=== PATIENT | female | born 1965 | race Caucasian/White ===

== ENCOUNTER 2023-04-28 07:31 | Day surgery (SDC) | payer BC ==
[~2023-04-28 07:31] MED LIST: Bupivacaine 0.5% 30 ML SDV ONE
[2023-04-28] MEDS ORDERED: Propofol 200 MG/20 ML SDV ONE ×3 (07:34→10:14)
[2023-04-28] MEDS ORDERED: fentaNYL 100 MCG/2 ML SDV ONE (07:34)
[2023-04-28] MEDS ORDERED: Midazolam 1 MG/ML 2 ML SDV ONE ×2 (07:34→09:35)
[2023-04-28 07:57] LABS: BASOPHILS ABSOLUTE AUTO 0.04 K/uL (0.00-0.10); BASOPHILS PERCENT AUTO 0.9 % (0.1-1.3); EOSINOPHILS ABSOLUTE AUTO 0.08 K/uL (0.00-0.40); EOSINOPHILS PERCENT AUTO 1.9 % (0.0-5.4); HEMATOCRIT 35.5 % (34.3-46.0); HEMOGLOBIN 12.4 g/dL (11.2-15.5); LYMPHOCYTES ABSOLUTE AUTO 1.65 K/uL (0.8-3.3); LYMPHOCYTES PERCENT AUTO 39.1 % (11.4-47.7); MEAN CORPUSCULAR HEMOGLOBIN 31.8 pg (31.6-35.5); MEAN CORPUSCULAR HGB CONC 34.9 g/dL (31.6-35.5); MONOCYTES ABSOLUTE AUTO 0.27 K/uL (0.20-0.90); MONOCYTES PERCENT AUTO 6.4 % (3.3-12.6); NEUTROPHILS ABSOLUTE AUTO 2.18 K/uL (1.0-7.6); NEUTROPHILS PERCENT AUTO 51.7 % (40.0-78.1); PLATELET COUNT,PLT 287 K/uL (130-375); WHITE BLOOD CELL COUNT,WBC 4.2 K/uL (3.2-11.0)
[2023-04-28] MEDS ORDERED: Lactated Ringers 1,000 ML IV SCH (08:00)
[2023-04-28] MEDS ORDERED: Nozin Nasal Sanitizer NASBOTH ONE (08:00)
[2023-04-28 08:18] LABS: A/G RATIO 0.9 (1.2-2.2); ALANINE AMINOTRANSFERASE,ALT 24 U/L (12-78); ALBUMIN 3.9 g/dL (3.4-5.0); ALKALINE PHOSPHATASE 62 U/L (46-116); ANION GAP 9.5 mmol/L (5.0-14.0); ASPARTATE AMNIOTRANSFERASE,AST 25 U/L (15-37); BILIRUBIN TOTAL 1.2 mg/dL (0.2-1.0); BLOOD UREA NITROGEN,BUN 14 mg/dL (7-18); CALCIUM 8.8 mg/dL (8.5-10.1); CARBON DIOXIDE,CO2 29 mmol/L (21-32); CHLORIDE,CL 103 mmol/L (100-108); CREATININE 0.7 mg/dL (0.6-1.0); ESTIMATED GFR 100 mL/min (>60); GLUCOSE RANDOM 95 mg/dL (74-106); POTASSIUM,K 3.7 mmol/L (3.6-5.2); PROTEIN TOTAL,TP 8.3 g/dL (6.4-8.2); SODIUM,NA 141 mmol/L (140-148)
[2023-04-28] MEDS ORDERED: ceFAZolin 2 GM in Premix Bag 1 BAG IV ONE (09:00)
[2023-04-28] MEDS ORDERED: Docusate Sodium 100 MG Cap PO PRN (09:16)
[2023-04-28] MEDS ORDERED: Ondansetron 4 MG/2 ML SDV IVPUSH PRN (09:16)
[2023-04-28] MEDS ORDERED: Morphine 2 MG/ML SYRINGE IVPUSH PRN (09:16)
[2023-04-28] MEDS ORDERED: oxyCODONE 5 MG Tab PO PRN ×2 (09:21→09:23)
[2023-04-28] MEDS ORDERED: Lactated Ringers 1,000 ML ONE (09:59)
[2023-04-28] MEDS: Sodium Chloride 0.9% 1,000 ML IV SCH ×2 (11:54→20:10)
[2023-04-28] MEDS: Ketorolac 30 MG/ML SDV IVPUSH PRN ×2 (13:04→23:38)
[2023-04-28] MEDS: Acetaminophen 325 MG Tab PO SCH ×2 (13:08→19:21)
[2023-04-28] MEDS: ceFAZolin 1 GM in Premix Bag 1 BAG IV SCH (17:10)
[2023-04-28] MEDS: Aspirin 325 MG Tab.EC PO SCH (20:07)
[2023-04-28] MEDS: Nozin Nasal Sanitizer NASBOTH SCH (20:07)
[2023-04-29] MEDS: ceFAZolin 1 GM in Premix Bag 1 BAG IV SCH ×2 (01:53→09:48)
[2023-04-29] MEDS: Acetaminophen 325 MG Tab PO SCH ×2 (01:59→07:26)
[2023-04-29] MEDS: Sodium Chloride 0.9% 1,000 ML IV SCH (04:49)
[2023-04-29] MEDS: Ketorolac 30 MG/ML SDV IVPUSH PRN (07:24)
[2023-04-29] MEDS ORDERED: Acetaminophen/HYDROcodone 325-5 MG Tab PO PRN (08:59)
[2023-04-29] MEDS ORDERED: Acetaminophen/HYDROcodone 325-10 MG Tab PO PRN (08:59)
[2023-04-29] MEDS ORDERED: Lactobacillus Rhamnosus GG (Probiotic) Cap PO SCH (09:00)
[2023-04-29] MEDS ORDERED: Hydroxychloroquine 200 MG Tab PO SCH (09:00)
[2023-04-29] MEDS: Nozin Nasal Sanitizer NASBOTH SCH (09:48)
[2023-04-29] MEDS: Aspirin 325 MG Tab.EC PO SCH (09:51)
== END 2023-04-29 18:00 | disposition home or self-care (01) ==
LOC: JP.SDS 07:31 → JP.2SS 09:16 → JP.SDS 04-29 18:00
PROVIDERS: ATTEND Specialist
DX: M17.11 Unilateral primary osteoarthritis, right knee (principal); M22.41 Chondromalacia patellae, right knee; F41.9 Anxiety disorder, unspecified; E78.5 Hyperlipidemia, unspecified; E07.9 Disorder of thyroid, unspecified; M35.00 Sjogren syndrome, unspecified; Z79.899 Other long term (current) drug therapy; Z88.8 Allergy status to other drugs, medicaments and biological substances
CPT/HCPCS: 27446; 36415; 73560; 80053; 85025; 97110; 97116; 97161; 97165; 97530; 97535; A9270; C1713; C1776; J0690; J1885; J2250; J2704; J3010; J3490; J7030; J7120

== ENCOUNTER 2023-05-06 13:15 | Emergency (ER) | payer BC ==
[2023-05-06] MEDS ORDERED: Sodium Chloride 0.9% 10 ML Syringe FLUSH ONE (14:11)
[2023-05-06] MEDS ORDERED: Sodium Chloride 0.9% 75 ML IV SCH (14:15)
[2023-05-06] MEDS ORDERED: Iopamidol 755 Mg/ML 100 ML Bottle IV SCH (14:15)
[2023-05-06 14:30] LABS: INR 1.1; PROTHROMBIN TIME 10.9 sec (9.2-10.6)
[2023-05-06 14:36] LABS: A/G RATIO 0.8 (1.2-2.2); ALANINE AMINOTRANSFERASE,ALT 48 U/L (12-78); ALBUMIN 3.5 g/dL (3.4-5.0); ALKALINE PHOSPHATASE 57 U/L (46-116); ASPARTATE AMNIOTRANSFERASE,AST 43 U/L (15-37); BILIRUBIN TOTAL 0.6 mg/dL (0.2-1.0); BLOOD UREA NITROGEN,BUN 11 mg/dL (7-18); CALCIUM 8.6 mg/dL (8.5-10.1); CARBON DIOXIDE,CO2 27 mmol/L (21-32); CHLORIDE,CL 99 mmol/L (100-108); CREATININE 0.8 mg/dL (0.6-1.0); EST CRCL DRUG DOSING (CG) 73.63 mL/min; ESTIMATED GFR 85 mL/min (>60); GLUCOSE RANDOM 94 mg/dL (74-106); POTASSIUM,K 3.6 mmol/L (3.6-5.2); PROTEIN TOTAL,TP 7.9 g/dL (6.4-8.2); SODIUM,NA 135 mmol/L (140-148)
[2023-05-06 14:37] LABS: ANION GAP 12.6 mmol/L (5.0-14.0)
== END 2023-05-06 15:55 | disposition home or self-care (01) ==
LOC: JP.ED 13:15
DX: R07.89 Other chest pain (principal); M79.81 Nontraumatic hematoma of soft tissue; M06.9 Rheumatoid arthritis, unspecified; Z88.8 Allergy status to other drugs, medicaments and biological substances; Z86.16 Personal history of COVID-19; Z79.899 Other long term (current) drug therapy; Z98.890 Other specified postprocedural states
CPT/HCPCS: 36415; 71275; 80053; 83605; 84145; 84484; 85610; 93005; 99285; J3490; Q9967